=== PATIENT | male | born 1965 | race Caucasian/White ===

== ENCOUNTER 2022-09-17 06:27 | Day surgery (SDC) | payer SELFPAY ==
[2022-09-17] MEDS ORDERED: Lactated Ringers 1,000 ML IV SCH (07:00)
[2022-09-17] MEDS ORDERED: Midazolam 1 MG/ML 2 ML SDV ONE (07:26)
[2022-09-17] MEDS ORDERED: fentaNYL 50 MCG/ML SDV ONE (07:26)
[2022-09-17] MEDS ORDERED: Propofol 200 MG/20 ML SDV ONE ×2 (07:26→07:40)
== END 2022-09-17 08:58 | disposition home or self-care (01) ==
LOC: JP.SDS 06:27
PROVIDERS: ATTEND Family Medicine
DX: Z12.11 Encounter for screening for malignant neoplasm of colon (principal); D12.8 Benign neoplasm of rectum; E78.1 Pure hyperglyceridemia; E66.9 Obesity, unspecified; Z79.899 Other long term (current) drug therapy; Z68.34 Body mass index [BMI] 34.0-34.9, adult
CPT/HCPCS: 45380; J2250; J2704; J3010; J7120